=== PATIENT | female | born 1950 | race Caucasian/White ===

== ENCOUNTER 2017-09-25 10:17 | Outpatient (CLI) | payer OTHER | END 2017-09-25 19:35 | disposition home or self-care (01) | LOC: SMA 10:17 | PROVIDERS: ATTEND Family Medicine | DX: Z12.31 Encounter for screening mammogram for malignant neoplasm of breast (principal); R92.1 Mammographic calcification found on diagnostic imaging of breast | CPT/HCPCS: 77067 ==

== ENCOUNTER 2018-10-01 09:25 | Outpatient (CLI) | payer OTHER | END 2018-10-01 20:47 | disposition home or self-care (01) | LOC: SMA 09:25 | PROVIDERS: ATTEND Family Medicine | DX: Z12.31 Encounter for screening mammogram for malignant neoplasm of breast (principal); R05 Cough | CPT/HCPCS: 71046-TC; 77067 ==